=== PATIENT | male | born 1955 | race Caucasian/White ===

== ENCOUNTER 2021-04-05 15:24 | Inpatient (IN) | payer MEDICARE, OTHER ==
[~2021-04-05] VITALS: Ht 180.3 cm; Wt 142.0 kg
[2021-04-05 16:47] LABS: HEMOGLOBIN 14.8 gm/dl (14.0-17.5); RED BLOOD COUNT 4.47 M/UL (4.20-5.50); WHITE BLOOD COUNT 7.6 K/UL (4.5-11.0)
[2021-04-05 17:20] LABS: BUN/CREATININE RATIO 13 (0-10)
[2021-04-06] MEDS ORDERED: BACTRIM DS TAB1 EACH PO (13:33)
[2021-04-06] MEDS ORDERED: DIOVAN40 MG PO (13:33)
[2021-04-06] MEDS ORDERED: FLOXIN 0.3% OTIC5 ML EARBOTH (13:34)
[2021-04-06] MEDS ORDERED: MAXIDEX5 ML EARRT (13:35)
[2021-04-06] MEDS ORDERED: ELIQUIS5 M1 PO (17:37)
[2021-04-06] MEDS ORDERED: LOPRESSOR 50 MG50 MG PO (17:37)
[2021-04-06] MEDS ORDERED: LEVOFLOXACIN500 MG PO (17:37)
--- NOTE | 2021-04-06 19:18 | NUR ---
PATIENT BEEN EDUCATED ON DISCHARGE INSTRUCTIONS. AT BEDSIDE. PATIENT WILL BE LEAVING VIA WHEELCHAIR ACCOMPAINED BY A STAFF MEMBER. PATIENS VITALS ARE STABLE. HR 95, BP 142/83 (97), O2 94%, 17 RR. IV HAS BEEN TAKEN OUT.
== END 2021-04-06 19:15 | disposition home or self-care (01) | DRG 308 ==
LOC: ER1 15:24 → PROG CARE 21:18 → CDU 21:18 → PROG CARE 22:44
PROVIDERS: Physician Assistant; ADMIT Internal Medicine
DX: I48.91 Unspecified atrial fibrillation (principal); K55.059 Acute (reversible) ischemia of intestine, part and extent unspecified; Z68.41 Body mass index [BMI] 40.0-44.9, adult; Z83.3 Family history of diabetes mellitus; D69.6 Thrombocytopenia, unspecified; I10 Essential (primary) hypertension; E66.01 Morbid (severe) obesity due to excess calories; Z82.49 Family history of ischemic heart disease and other diseases of the circulatory system
CPT/HCPCS: ECHO; 36415; 71045; 80053; 80061; 80307; 82550; 82553; 83036; 83605; 83874; 83880; 84439; 84443; 84484; 84550; 85025; 85730; 86787; 87040; 93005; 93306; 96374; 96376; 99285; J1644; J2543; J7030; Q9967